=== PATIENT | female | born 1970 | race Caucasian/White ===

== ENCOUNTER 2018-11-23 01:00 | Emergency (ER) | payer SELFPAY ==
[~2018-11-23] VITALS: Ht 162.6 cm; Wt 72.6 kg
[2018-11-23 01:07] VITALS: BP 133/92
--- NOTE | 2018-11-23 01:11 | NUR ---
PT AMBULATED TO BED 3
--- NOTE | 2018-11-23 01:12 | NUR ---
PATIENT PRESENTS TO ED WITH C/O PAINFUL URINATION , FREQUENCY, LOWER ABD PAIN PT STATES SHE HAS HAD THESE SYMPTOMS BEFORE AND IT WAS A UTI. DENIES N/V/D; AAOX4 WITH EVEN AND STEADY GAIT; LUNGS CLEAR BL; HR EVEN AND REGULAR; PT DENIES ANY FEVER, CP, SOB, OR COUGH AT THIS TIME; PATIENT STATES PAIN OF 6/10 AT THIS TIME; VSS; PATIENT POSITIONED FOR COMFORT; HOB ELEVATED; BEDRAILS UP X2; BED DOWN. ER MD MADE AWARE OF PT STATUS.
[2018-11-23] MEDS ORDERED: IBUPROFEN 600 MG TAB PO ONE (01:25)
[2018-11-23 01:26] LABS: APPEARANCE,URINE CLOUDY (CLEAR); BILIRUBIN,URINE NEGATIVE (NEGATIVE); BLOOD, URINE 1+ (NEGATIVE); COLOR,URINE YELLOW (YELLOW); LEUKOCYTE ESTERASE ,URINE 3+ (NEGATIVE); NITRITE, URINE NEGATIVE (NEGATIVE); PH,URINE 6.5 (5.0-9.0); UGLUCOSE NEGATIVE (NEGATIVE)
[2018-11-23 01:39] LABS: RBC,URINE TOO NUMEROUS TO COUN /HPF (0-5); WBC,URINE TOO MANY TO COUNT /HPF (0-5)
[2018-11-23] MEDS ORDERED: NITROFURANTOIN 100 MG CAP PO ONE (01:40)
[2018-11-23 01:50] VITALS: BP 112/74
--- NOTE | 2018-11-23 01:50 | NUR ---
Patient discharged with v/s stable. Written and verbal after care instructions given and explained. Patient alert, oriented and verbalized understanding of instructions. Ambulatory with steady gait. All questions addressed prior to discharge. ID band removed. Patient advised to follow up with PMD. Rx of PHENAZOPYRIDINE HYDROCHLORIDE 100MG, AND MACROBID 100MG given. Patient educated on indication of medication including possible reaction and side effects. Opportunity to ask questions provided and answered.
== END 2018-11-23 01:50 | disposition home or self-care (01) ==
LOC: MED 01:00
DX: N39.0 Urinary tract infection, site not specified (principal)
CPT/HCPCS: 81001; 87086; 87186; 99283

== ENCOUNTER 2021-12-12 21:24 | Emergency (ER) | payer SELFPAY ==
[~2021-12-12] VITALS: Ht 157.5 cm; Wt 72.6 kg
[2021-12-12 21:52] VITALS: BP 147/84
--- NOTE | 2021-12-12 22:41 | NUR ---
PT TAKEN TO BED 9
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
--- NOTE | 2021-12-12 23:41 | NUR ---
ERMD AT BEDSIDE EXAMINING PT
[2021-12-12] MEDS ORDERED: KETOROLAC 60 MG/2 ML VIAL IM ONE (23:45)
[2021-12-12] MEDS ORDERED: OMEP40EC24 PO (23:57)
[2021-12-12] MEDS ORDERED: IBUP-2213 PO (23:57)
[2021-12-13 00:20] VITALS: BP 137/82
--- NOTE | 2021-12-13 00:21 | NUR ---
Patient discharged with v/s stable. Written and verbal after care instructions given and explained. Patient alert, oriented and verbalized understanding of instructions. Ambulatory with steady gait. All questions addressed prior to discharge. ID band removed. Patient advised to follow up with PMD. Rx of IBUPROFEN AND PRILOSEC given. Patient educated on indication of medication including possible reaction and side effects. Opportunity to ask questions provided and answered. VSS, A/OX4, AMBULATORY, UNLABORED BREATHING, AND CALM DEMEANOR.
== END 2021-12-13 00:21 | disposition home or self-care (01) ==
LOC: MED 21:24
DX: R07.89 Other chest pain (principal); K21.9 Gastro-esophageal reflux disease without esophagitis
CPT/HCPCS: 93005; 96372; 99283; J1885

== ENCOUNTER 2024-03-14 14:42 | Emergency (ER) | payer MEDICAID, OTHER ==
[~2024-03-14] VITALS: Ht 162.6 cm; Wt 72.1 kg
[~2024-03-14 14:42] MED LIST: IBUP-2213 PO; OMEP40EC24 PO
[2024-03-14 14:53] VITALS: BP 163/77; PULSE 82; RESP 20; TEMP 97.3
== END 2024-03-14 15:31 | disposition home or self-care (01) ==
LOC: MED 14:42
DX: R21 Rash and other nonspecific skin eruption (principal); T46.7X5A Adverse effect of peripheral vasodilators, initial encounter; I10 Essential (primary) hypertension; E78.00 Pure hypercholesterolemia, unspecified; Z79.899 Other long term (current) drug therapy; Z88.8 Allergy status to other drugs, medicaments and biological substances; Y92.89 Other specified places as the place of occurrence of the external cause
CPT/HCPCS: 99281; 99282